=== PATIENT | female | born 1965 | race Caucasian/White ===

== ENCOUNTER 2022-02-10 12:10 | Emergency (ER) | payer OTHER, SELFPAY ==
[2022-02-10 12:20] VITALS: BP 147/84; PULSE 84; RESP 19; TEMP 36.6; O2SAT 97; BMI 26.4
--- NOTE | 2022-02-10 12:38 | HMH.EDUTC ---
[facility] [place] Clinical Impression: Allergic reaction Qualifiers: Encounter type: initial encounter Qualified Code(s): T78.40XA - Allergy, unspecified, initial encounter Disposition: Home, Self-Care Condition on Discharge: Good Instructions: DI for General Allergic Reactions Additional Instructions: follow up with pcp if symptoms worsen return or be seen in ed Prescriptions: Triamcinolone Acetonide 1 gm TP BID #15 gm Transmission Status: Pending to [id number] Referrals: Yoli Ordaz APRN [Primary Care Provider] - Time of Disposition: 12:46 Medical Decision Making - Ramo Inquiry Pt receiving controlled substance: No Vital Signs: 02/10/22 12:20 Temperature 97.8 F Temperature Source Oral Pulse Rate [Right Brachial] 84 Respiratory Rate 19 Blood Pressure [Right Arm] 147/84 H Blood Pressure Mean [Right Arm] 105 Blood Pressure Source [Right Arm] Automatic Cuff Blood Pressure Position [Right Arm] Sitting 02 Sat by Pulse Oximetry 97 Oxygen Delivery Method Room Air [facility] [place] HPI - General Chief complaint: Urgent Treatment Center Stated complaint: Rash on both arms Time Seen by Provider: 02/10/22 12:40 Mode of Arrival: Ambulatory Source of Information: Patient Limitations: No Limitations Description of Symptoms (Recalled from Triage Doc. by RN): PATIENT C/O RASH TO BILATERAL ARMS. SHE STATES SHE ATE DORITOS AND IS ALLERGIC TO CORN HEENT Symptoms (Recalled from RN notes): No Resp Symptoms (Recalled from RN notes): No Skin Symptoms (Recalled from RN notes): Yes MS Symptoms (Recalled from RN notes): No Functional Status (Recalled from RN notes): WNL - History of Present Illness Provider Complaint: 56 yr old female presents for rash to shukri arms and abd. pt states she ate some chips not realizing it had corn in them and she is allergic to corn. pt states she takes numerous allergy meds everyday and usually steroids clears it up - Related Data Previous Rx's Medication Instructions Recorded Triamcinolone Acetonide 1 gm TP BID #15 gm 02/10/22 Allergies Allergy/AdvReac Type Severity Reaction Status Date / Time amoxicillin Allergy Verified 02/10/22 12:34 corn Allergy Verified 02/10/22 12:34 doxorubicin [From Doxil] Allergy Verified 02/10/22 12:34 Penicillins Allergy Verified 02/10/22 12:34 sulfamethoxazole Allergy Verified 02/10/22 12:34 [From Bactrim] trimethoprim [From Bactrim] Allergy Verified 02/10/22 12:34 - Worker's Comp Is this a Worker's Comp case?: No [facility] History - Hepatitis A Screen Attestation statement:: This patient has been screened for Hepatitis A risk factors. I have reviewed the patient's past medical history: Yes ROS Obtained: Yes Systems reviewed as appropriate & no additional complaints - Constitutional Constitutional: Reports system reviewed and no additional complaints, except as docu, Denies fever(s) - Eyes Eyes: Reports system reviewed and no additional complaints, except as docu, Denies dry eyes - ENT Ears, Nose, Mouth, and Throat: Reports system reviewed and no additional complaints, except as docu, Denies sore throat - Cardiovascular Cardiovascular: Reports system reviewed and no additional complaints, except as docu, Denies chest pain - Respiratory Respiratory: Reports system reviewed and no additional complaints, except as docu, Denies change in phlegm color - Gastrointestinal Gastrointestingal: Reports: system reviewed and no additional complaints, except as docu. Denies: abdominal pain - Musculoskeletal Musculoskeletal: Reports system reviewed and no additional complaints, except as docu, Denies joint pain - Integumentary/Breasts Skin/Breast: Reports system reviewed and no additional complaints, except as docu, Reports itching, Reports rash - Neurologic Neurologic: Reports system reviewed and no additional complaints, except as docu, Denies dizziness - Endocrine Endocrine: Reports system reviewed and no a
[2022-02-10 12:45] VITALS: BP 147/84; PULSE 84; RESP 19; TEMP 36.6; O2SAT 97
== END 2022-02-10 12:52 | disposition home or self-care (01) ==
PROVIDERS: Emergency Provider Nurse Practitioner Family; PCP Nurse Practitioner
DX: T78.40XA Allergy, unspecified, initial encounter (principal)
CPT/HCPCS: 96372; 99212; G0463

== ENCOUNTER 2022-02-13 16:04 | Emergency (ER) | payer OTHER, SELFPAY ==
[2022-02-13 16:39] VITALS: BP 131/85; PULSE 74; RESP 18; TEMP 36.7; O2SAT 98; BMI 29.2
--- NOTE | 2022-02-13 16:45 | HMH.EDUTC ---
[facility] [place] Clinical Impression: Allergic reaction Qualifiers: Encounter type: initial encounter Qualified Code(s): T78.40XA - Allergy, unspecified, initial encounter Disposition: Home, Self-Care Condition on Discharge: Good Instructions: DI for General Allergic Reactions Additional Instructions: Make sure you are avoiding contact with the offending substance. Don't start the oral steroids until tomorrow. Follow up with your regular doctor. GO TO THE ER FOR ANY WORSENING SYMPTOMS OR CONCERNS Prescriptions: methylPREDNISolone [Medrol] 4 mg PO DIRECTED 6 Days #21 packet Transmission Status: Received by [id number] Referrals: Yoli Ordaz APRN [Primary Care Provider] - Medical Decision Making - Medical Records Medical records reviewed: No: I reviewed the patient's medical records. - Ramo Inquiry Pt receiving controlled substance: No Vital Signs: 02/13/22 16:39 02/13/22 17:37 Temperature 98.1 F 98.1 F Temperature Source Oral Pulse Rate 74 Pulse Rate [Left] 74 Respiratory Rate 18 18 Blood Pressure 131/85 Blood Pressure [Right Arm] 131/85 Blood Pressure Mean [Right Arm] 100 02 Sat by Pulse Oximetry 98 Orders (Tests/Meds): ED MEDICATIONS Discontinued Medications Generic Name Dose Route Start Last Admin Trade Name Freq PRN Reason Stop Dose Admin Methylprednisolone Sodium Succinate 125 mg 02/13/22 16:50 02/13/22 17:00 Methylprednisolone Sod Succ 125mg Vial IM 02/13/22 16:51 125 mg ONCE ONE Administration [facility] [place] - General Stated complaint: rash on face and florinda Time Seen by Provider: 02/13/22 16:45 Mode of Arrival: Ambulatory Source of Information: Patient Limitations: No Limitations Description of Symptoms (Recalled from Triage Doc. by RN): patient comes in with complaints of rash that has been worsening since saturday. patient did recieve a shot and cream but it is not helping. HEENT Symptoms (Recalled from RN notes): No Resp Symptoms (Recalled from RN notes): No Skin Symptoms (Recalled from RN notes): Yes MS Symptoms (Recalled from RN notes): No Functional Status (Recalled from RN notes): n/a - History of Present Illness Provider Complaint: She has been having a skin breakout on her face and bilateral forearms. She has reactions like this when she eats products that contain corn. She accidentily ate some doritoes right before her symptoms began. She came here 3 days ago and recieved a steroid shot. She states that she seemed to fell better after that, but then the next day her symptoms returned. - Related Data Previous Rx's Medication Instructions Recorded Triamcinolone Acetonide 1 gm TP BID #15 gm 02/10/22 methylPREDNISolone [Medrol] 4 mg PO DIRECTED 6 Days #21 02/13/22 packet Allergies Allergy/AdvReac Type Severity Reaction Status Date / Time amoxicillin Allergy Verified 02/10/22 12:34 corn Allergy Verified 02/10/22 12:34 doxorubicin [From Doxil] Allergy Verified 02/10/22 12:34 Penicillins Allergy Verified 02/10/22 12:34 sulfamethoxazole Allergy Verified 02/10/22 12:34 [From Bactrim] trimethoprim [From Bactrim] Allergy Verified 02/10/22 12:34 - Worker's Comp Is this a Worker's Comp case?: No [facility] History - Hepatitis A Screen Attestation statement:: This patient has been screened for Hepatitis A risk factors. I have reviewed the patient's past medical history: Yes ROS Obtained: Yes All systems reviewed & no additional complaints - Constitutional Constitutional: Denies chills, Denies fever(s) - Eyes Eyes: Denies eye discharge, Denies itchy eyes - Musculoskeletal Musculoskeletal: Denies joint pain - Integumentary/Breasts Skin/Breast: Reports as per HPI Physical Exam - General General appearance: alert, in no apparent distress - Head Head exam: atraumatic, normocephalic, normal inspection - Eye Eye exam: Present: normal appearance, PERRL, EOMI - ENT ENT exam:
[2022-02-13 17:37] VITALS: BP 131/85; PULSE 74; RESP 18; TEMP 36.7
== END 2022-02-13 17:38 | disposition home or self-care (01) ==
PROVIDERS: Emergency Provider Nurse Practitioner Family; PCP Nurse Practitioner
DX: T78.40XA Allergy, unspecified, initial encounter (principal)
CPT/HCPCS: 96372; 99212; G0463